=== PATIENT | male | born 1955 | race Caucasian/White ===

== ENCOUNTER 2022-04-19 06:46 | Observation (INO) ==
[~2022-04-19 06:46] MED LIST: LIDOCAINE 1% LOCAL 20 ML VIAL ONE
[2022-04-19] MEDS ORDERED: LIDOCAINE 1% LOCAL 20 ML VIAL ONE (07:05)
--- NOTE | 2022-04-19 08:02 | History & Physical Bridge Note ---
Date of Service April 19, 2022 History & Physical Bridge Note I have examined the patient, reviewed the History & Physical and in the interval since the performance of the History & Physical I have noted the following changes of clinical significance: no changes noted I have explained the risk, benefit and intent of the procedure to the patient and he is willing to proceed.
--- NOTE | 2022-04-19 08:03 | Pre Anesthesia Assessment ---
Date of Service April 19, 2022 Pre Sedation Assessment Vital Signs Temp Pulse Resp BP Pulse Ox 04/19/22 07:05 37.2 C 70 16 177/89 H 98 Pre-Sedation Airway Assessment Smoking Status: Never smoker Short, Thick Neck: No Thyromental Distance: > or= 3.5 Finger Breadths Oral Cavity: + WNL Mallampati Class: III ASA: ASA3 NPO Status Date of Last Intake of Fluids: 04/18/22 Time of Last Intake of Fluids: 20:00 Date of Last Intake of Solid Food: 04/18/22 Time of Last Intake of Solid Foods: 20:00 Notes The planned sedation has been discussed with the patient. Informed Consent was obtained. I have identified the patient, determined the appropriateness of sedation and have assessed the patient immediately prior to the procedure. All medicine(s) and interventions are by my order.
[2022-04-19] MEDS ORDERED: niCARdipine HCL INJ 2.5 MG/ML 10 ML AMP ONE ×2 (08:06→08:07)
[2022-04-19] MEDS ORDERED: MIDAZOLAM HCL 1 MG/ML 2ML VIAL ONE ×3 (08:06→09:20)
[2022-04-19] MEDS ORDERED: HEPARIN (PORCINE) 1000 UNIT/ML 10 ML (CATH LAB USE ONLY) ONE ×2 (08:06→09:07)
[2022-04-19] MEDS ORDERED: NITROGLYCERIN/D5W 100MCG/ML 20ML SYR ONE (08:06)
[2022-04-19] MEDS ORDERED: fentaNYL citrate 100 MCG/2 ML VIAL ONE ×2 (08:06→08:07)
[2022-04-19] MEDS ORDERED: SODIUM CHLORIDE 0.9% 1000ML 1,000 ML IV SCH (08:15)
--- NOTE | 2022-04-19 08:54 | Cardiac Catheterization ---
Date of Service April 19, 2022 Cardiac Cath Report Cardiac Cath Report Procedure: 1. Left heart catheterization 2. Coronary angiography 3. Left ventriculogram History: This is a 66-year-old male patient who underwent a cardiac catheterization in 2004 and was found to have nonobstructive coronary artery disease. Patient presented recently with progressive exertional angina and was referred for cardiac catheterization. Procedure: After informed consent was obtained the patient was taken to the cardiac catheterization lab where access was obtained using a retrograde Salinger technique from the right radial artery. Preformed 5 Liberian diagnostic catheters were utilized for the coronary angiograms. A 5 Liberian pigtail catheter was utilized for left heart pressures and left ventriculogram. Following the procedure the patient underwent coronary intervention. ACC data: Start time 8:16 AM End time 8:34 AM Opening aortic pressure 149/98 Closing aortic pressure 166/87 Left ventricular pressure 161/16 Sedation 1 mg intravenous Versed IV fluid 55 cc normal saline Contrast 100 cc Optiray Fluoroscopy time 4 minutes Radiation 524 mGy DAP 48.78 Unger per centimeter squared Right dominant system AUC score 7 Coronary angiography: Injections into the left coronary artery revealed the left main trunk to be patent. The left circumflex artery consist of a large first marginal branch supplying the lateral myocardium and then a smaller second marginal branch supplying the posterior myocardium. The left circumflex artery has minor luminal irregularities but is widely patent. The first marginal branch however, does have a 50 to 60% eccentric narrowing distally. The LAD extends around the apex of the heart. The LAD gives off a single large first diagonal branch. 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 Injections in the right coronary artery reveal it to be dominant. There are minor luminal irregularities however the right coronary artery is widely patent. Left ventriculogram: The left ventricle is of normal size with normal systolic function. The mitral valve is competent. The aortic root and ascending aorta have normal morphology and diameter. Summary: The patient has a high-grade eccentric stenosis of the mid LAD which is most likely the cause of his angina. The remainder of the coronary anatomy is nonobstructive disease. Normal LV function. Recommendations: Coronary intervention and stent placement mid LAD.
[2022-04-19] MEDS ORDERED: CLOPIDOGREL BISULFATE 300 MG TAB ONE (09:31)
--- NOTE | 2022-04-19 09:40 | Post Anesthesia Assessment ---
Date of Service April 19, 2022 Post Sedation Assessment Vital Signs Temp Pulse Resp BP Pulse Ox 04/19/22 07:05 99.0 F 70 16 177/89 H 98 Recovery Score Activity: Moves 4 extremities Respiration: Deep Breath/Cough Circulation: +/-20% PreAnes Value Consciousness: Fully Awake Oxygen Saturation: O2 needed for >90% Discharge Sedation Level of Care: Fast Track Phase II Post Sedation Plan On clinical assessment, the patient appears to have tolerated the sedation without complications. Patient is recovering as anticipated. Patient will continue to be monitored by nursing and may be discharged when sedation discharge criteria are met per below protocol. Upon Completions of procedure up to 15 minutes continue every 5 minute vital signs and the P.A.R. score; then discharge to a Phase I or Fast Track to Phase II per the following guidelines: * Discharge Patient to appropriate Phase II area if PAR is 8 or greater or return to pre- procedure baseline. The post - procedure orders will be as directed. * If PAR score is less than 8 or not return to pre-procedure baseline then patient will follow Phase I monitoring till PAR is reached for Phase II. The Phase I may be done in procedure room or may call to secure a Phase I area. * If naloxone or flumazenil are used for reversal, hold in Phase I for continued monitoring from when last reversal dose was given for a minimum of 60 minutes or longer pending the nurse and/or physician discretion of patient condition before discharge to Phase II. Please call the Sedation Physician to re-evaluate and complete post-note for discharge to Phase II area. Do NOT discharge from procedure sedation or Phase 1 until post- sedation evaluation note is complete by procedure /sedation MD Sedation Discharge Instructions to be given to the patient at discharge to home.
[2022-04-19] MEDS ORDERED: ACETAMINOPHEN 325 MG TAB PO PRN (09:55)
[2022-04-19] MEDS ORDERED: ONDANSETRON INJ 2 MG/ML 2 ML VIAL IV PRN (09:55)
[2022-04-19] MEDS ORDERED: NITROGLYCERIN SL 0.4 MG/TAB TAB SL PRN (09:55)
--- NOTE | 2022-04-19 09:55 | Cardiac Catheterization ---
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 Cardiac Status Clinical evaluation leading to the procedure CAD Presenation: Unstable angina Anginal Classification: CCS III Diagnostic Physicians Name: Srinivas Yanez MD Closure Device Recommendations: PCI without planned CABG Cardiac Cath Procedure Full Procedure Date April 19, 2022 Pre-Procedure Diagnosis Pre-Procedure Diagnosis: Angina AUC Score AUC Score: 7 Post-Procedure Diagnosis Post-Procedure Diagnosis: Severe CAD and Successful PCI Procedure(s) Performed Procedure(s) Performed: Coronary Angiography, Left Heart Cath, Drug Eluting Stent and IVUS Teacher Private Srinivas Yanez MD Home Health Occupational Therapist(s) Melvin Estimated Blood Loss Estimated Blood Loss: 15 Medication(s) Medication(s): Clopidogrel, Fentanyl, Heparin, Nicardipine, Nitroglycerin and Versed Summary of Findings Indication: Unstable angina Access: 6 Fr right radial artery Catheters: EBU 3.5 guide Findings: For full details of patient's coronary angiography please see cath report dictated by Dr. Vazquez. Briefly, patient found to have diffuse LAD disease up to 80% in the early mid segment. Decision to proceed with PCI. -- PCI -- Antithrombotic therapy: Heparin, clopidogrel Procedure: Left main cannulated with EBU 3.5 guide Pre-procedure flow JOHN 3 BMW wire passed across lesion into distal vessel Selden IVUS catheter placed into mid LAD to assess calcification, extent of disease and for vessel sizing. Pullback revealed moderate to severe diffuse disease extending past diagonals and back to proximal vessel. Areas of severe eccentric calcification, most notably at takeoff of first and second septals. Proximal to mid LAD stented with 3.0 x 38 mm Lucius drug-eluting stent Stent post-dilated with 3.5 noncompliant balloon Repeat IVUS revealed well apposed, well-expanded stent. Eccentric calcified plaque noted just proximal to the stent and with mild residual chest pain following IC vasodilators decision made to place second more proximal stent 3.5 x 12 mm Florence placed to proximal LAD overlapping proximal aspect of initial stent IC vasodilators administered for spasm Post procedure JOHN 3 flow, stents well expanded with minimal residual stenosis and no apparent cardiac complications. Arterial Closure: TR band Summary: 1. Successful PCI of proximal to mid LAD with 2 overlapping drug-eluting stents (3.5 x 12, 3.0 x 38 mm Florence; postdilated with 3.5 NC). Recommendations: To PCU for continued monitoring Loaded with clopidogrel 600 mg in Repair Operator Continue dual-antiplatelet therapy for at least 6 months Continue statin, and ASCVD risk factor modification Consult cardiac Rehab If recurrent symptoms in the future additional FFR/PCI of distal OM could be considered. Hemodynamics Rest Ao:: 142/74/99 Final Ao: 128/65/94 LV: -- Recommendations Recommendations: PCI without planned CABG Specimens Specimens: None Radiation Exposure (mGy) 1472 Contrast (mls) 195 Fluids (cc crystalloids) Fluids (cc crystalloids): 200 Anesthesia moderate 5740-0118 Procedural Complication(s) None Disposition PCU I attest to the content of the Intraoperative Record and any orders documented therein. Any exceptions are noted below. [facility] Card Cath Procedure Codes Therapeutic Services & Ancillary Proc Procedure 1: Cardiovascular Tx and Anc Procedures: 66114 IV Ultrasound (Coronary or Graft) Moderate Sedation Procedure 1: Sedation/Anesthesia: 05272 Mod Sedation by the same physician; Ea [id number] Minutes Stenting Procedure 1: Cardiovascular Stent Procedures: 30310 Perc transcatheter placement of intracoronary stent(s), with ang PG Care Time/CCT Total # of Minutes Spent Total Time Spent with Patient: Total time spent is greater than 50% in coordination of care (as documented) at patient's floor/unit and/or counseling patient:
--- NOTE | 2022-04-19 10:16 | History & Physical Report ---
Date of Service April 19, 2022 Assessment & Plan (1) Unstable angina: Plan: Unstable angina S/P Successful PCI of proximal to mid LAD with 2 overlapping drug-eluting stents Continue dual antiplatelet therapy aspirin, Plavix for at least 6 months Continue statin Check lipid panel, HbA1c Appreciate cardiology input needs Needs follow-up with cardiology upon discharge COPD/Asthma Former Smoker Started on nebs Continue home inhalers Saturating well on room air GERD Continue PPI Pepcid as needed Dyslipidemia On statin DVT Px SCDs for now Code Status Full Code History of Present Illness Chief Complaint: Angina Primary Care Provider: Court Horton DO Patient is a 66-year-old male with history of asthma, COPD, crescendo angina, former tobacco use, dyslipidemia, coronary artery disease and other medical problems presents for heart catheterization on recommendation from his primary business administration instructor. Patient had successful PCI of proximal to mid LAD with overlapping drug-eluting stents. Patient states having chest pain associated with left shoulder, arm pain on exertion for many days and so was evaluated by [facility] cardiology for further evaluation. Patient describes chest pain as heartburn-like sensation, worsens with exertion and lately is frequency of his symptoms have been gradually worsening even with minimal exertion. He states having left upper extremity numbness and tingling of the fingers associated with the chest pain. He also states having heart racing kind of sensation intermittently. Reports intermittent cough, wheezing which he attributes to COPD. Currently post cardiac catheterization, he describes having minimal heartburn-like sensation. Denies any history of orthopnea, PND, dizziness, diaphoresis, hemoptysis, fever, chills, headache, change in vision, nausea, vomiting, abdominal pain, diarrhea, dysuria, hematuria. Allergies Allergy/AdvReac Type Severity Reaction Status Date / Time No Known Allergies Allergy Unverified 04/19/22 08:19 Home Medications Medication Instructions Recorded Confirmed Type Albuterol (Proair Hfa) 2 puff INHALATION Q4HR PRN #0 09/22/12 04/19/22 History MOMETASONE FUROATE-FORMOTEROL 2 aer INHALATION DAILY #0 aer 09/22/12 04/19/22 History (DULERA 100/5 MCG) PANTOPRAZOLE (PROTONIX) 40 mg PO QAM #30 tab 09/22/12 04/19/22 History SIMVASTATIN (ZOCOR) 40 mg PO QPM #0 tab 09/22/12 04/19/22 History ASPIRIN (ASPIRIN CHEWABLE) 81 mg PO DAILY #0 tab 10/07/12 04/19/22 History MULTIPLE VITAMIN (MULTIVITAMIN) 1 tab PO DAILY #0 tab 10/07/12 04/19/22 History dupilumab 300 mg/2 mL subcutaneous 300 mg SUBCUT Q14D 04/19/22 04/19/22 History pen injector fexofenadine 60 mg tablet 60 mg PO DAILY 04/19/22 04/19/22 History fluticasone propionate 50 2 spray INTRANASAL DAILY 04/19/22 04/19/22 History mcg/actuation nasal spray,suspension (Flonase Allergy Relief) montelukast 10 mg tablet 10 mg PO HS 04/19/22 04/19/22 History tiotropium bromide 1.25 1 puff INHALATION BID 04/19/22 04/19/22 History mcg/actuation mist for inhalation (Spiriva Respimat) Past Med/Surg History Medical History (Updated 04/19/22 @ 13:02 by Sadi Rodriguez MD) COPD (chronic obstructive pulmonary disease) Dyslipidemia Unstable angina Surgical History History of cholecystectomy Family History Mother Cancer Social History Smoking Status: Former smoker Hx Alcohol Use: Yes Alcohol type: beer Hx Substance Use: No Preferred Language: Macedonian Communication Ability: Effective School Secretary Required: No Beliefs That Will Affect Care: None Current Living Situation: Alone Other Information That Helps Us Care for You: No Feels Safe at Home: Yes Safety Concerns: Feels Safe At This Time Review of Systems Review of Systems: All systems reviewed & are unremarkable except as noted in Subjective Physical Exam Physical Exam: Physical Exam: Vitals signs as noted above General Appearance:Obese, no apparent distress Head: normocephalic, Atraumatic Eyes: normal inspection, EOMI Neck: supple, Trachea midline Respiratory/Chest: Decreased breath sounds, Minimal wheezing, No accessory muscle use Cardiovascular: S1, S2, No murmur Abdomen/GI:Soft, Non tender, Bowel sounds present Extremities/Musculoskeletal:normal inspection, 1+ B/L LE edema Neurologic/Psych:AAOX3, grossly no focal neurological deficits Skin: normal color, warm Results & Data Results & Data ([facility]) Vital Signs (Past 12 Hours) Vital Signs Temp Pulse Resp BP Pulse Ox 04/19/22 10:05 575 H 18 140/83 97 04/19/22 09:50 57 L 18 132/78 92 04/19/22 09:35 64 20 134/82 93 04/19/22 07:05 37.2 C 70 16 177/89 H 98 Laboratory Results Reviewed outpatient labs Code Status & VTE Plan VTE Prophylaxis Plan VTE Prophylaxis will be ordered: Yes
[2022-04-19] MEDS ORDERED: POLYETHYLENE (MIRALAX) 17 GM PACK PO PRN (11:14)
[2022-04-19] MEDS ORDERED: FAMOTIDINE 20 MG TAB PO PRN (11:14)
[2022-04-19 15:06] LABS: Influenza A virus by PCR Negative (Neg); Influenza B virus by PCR Negative (Neg); RSV by PCR Negative (Neg); SARS CoV2 RNA(COVID-19) InHosp NEGATIVE (Negative)
[2022-04-19] MEDS: ALBUT/IPRATROP 3MG/0.5MG NEB 3 ML VIAL NEB SCH ×2 (15:06→19:52)
--- NOTE | 2022-04-19 15:56 | Electrocardiogram Report ---
Test Reason : Blood Pressure : / mmHG Vent. Rate : 057 BPM Atrial Rate : 057 BPM P-R Int : 178 ms QRS Dur : 096 ms QT Int : 424 ms P-R-T Axes : 052 035 097 degrees QTc Int : 412 ms Sinus bradycardia with sinus arrhythmia Nonspecific T wave abnormality Abnormal ECG No previous ECGs available Confirmed by Yuri Monroe ([id number]) on 04/19/2022 3:55:40 PM Referred By: Marcel Dc Confirmed By:Yuri Monroe
--- NOTE | 2022-04-19 15:59 | Electrocardiogram Report ---
Test Reason : Blood Pressure : / mmHG Vent. Rate : 059 BPM Atrial Rate : 059 BPM P-R Int : 172 ms QRS Dur : 104 ms QT Int : 426 ms P-R-T Axes : 060 047 095 degrees QTc Int : 421 ms Sinus bradycardia Otherwise normal ECG When compared with ECG of 19-APR-2022 09:41, (unconfirmed) No significant change was found Confirmed by Yuri Monroe ([id number]) on 04/19/2022 3:58:45 PM Referred By: Marcel Dc Confirmed By:Yuri Monroe
[2022-04-19] MEDS ORDERED: MONTELUKAST SODIUM 10 MG TABLET PO SCH (21:00)
[2022-04-19] MEDS ORDERED: SIMVASTATIN 40 MG TAB PO SCH (21:00)
[2022-04-20] MEDS: ALBUT/IPRATROP 3MG/0.5MG NEB 3 ML VIAL NEB SCH ×2 (07:12→11:23)
[2022-04-20 07:47] LABS: BUN Creatinine Ratio 9.9 (10-20); Calcium 8.9 mg/dl (8.5-10.1); Creatinine Clr Calc Pharmacy 84.2 ml/min; Est GFR (African American) 88.2 ml/min; Est GFR (Non-African American) 76.1 ml/min; Magnesium 1.8 mg/dl (1.7-2.4); Potassium 3.8 mmol/L (3.5-5.1)
[2022-04-20 08:00] LABS: Basophils # (auto) 0.01 K/uL (0-0.2); Basophils % (auto) 0.2 %; Eosinophils # (auto) 0.47 K/uL (0-0.5); Eosinophils % (auto) 7.6 %; Hematocrit (blood only) 41.3 % (42-52); Hemoglobin 13.8 g/dL (14.0-18.0); Immature Granulocytes # (auto) 0.03 K/uL (0.00-0.02); Immature Granulocytes % (auto) 0.5 %; Lymphocytes # (auto) 0.92 K/uL (1.2-3.4); Lymphocytes % (auto) 14.9 %; Mean Corpuscular Hemoglobin 29.6 pg (25-34); Mean Corpuscular Hgb Conc 33.4 g/dL (32-36); Mean Corpuscular Volume 88.6 fL (80-100); Mean Platelet Volume 8.5 fL (7.4-10.4); Monocytes # (auto) 0.32 K/uL (0.11-0.59); Monocytes % (auto) 5.2 %; Neutrophils # (auto) 4.43 K/uL (1.4-6.5); Neutrophils % (auto) 71.6 %; Platelet Count 199 K/uL (130-400); RDW Coefficient of Variation 12.6 % (11.5-14.5); Red Blood Count 4.66 M/uL (4.7-6.1); White Blood Count 6.18 K/uL (4.8-10.8)
[2022-04-20 08:08] LABS: Estimated Average Glucose 126 mg/dl
[2022-04-20] MEDS ORDERED: CLOPIDOGREL BISULFATE 75 MG TAB PO SCH (09:00)
[2022-04-20] MEDS ORDERED: UMECLIDINIUM BROMIDE 62.5MCG/BLISTER 7 PUFFS/INHALER INH SCH (09:00)
[2022-04-20] MEDS ORDERED: FLUTICASONE PROPIONATE NA SPR 16 GM BTL SCH (09:00)
[2022-04-20] MEDS ORDERED: ASPIRIN 81 MG ECTAB PO SCH (09:00)
[2022-04-20] MEDS ORDERED: FLUTICASONE/VILANTEROL 200/25MCG 14 PUFFS/INHALER INH SCH (09:00)
[2022-04-20] MEDS ORDERED: FEXOFENADINE 60 MG TAB PO SCH (09:00)
[2022-04-20] MEDS ORDERED: PANTOprazole 40 MG TAB PO SCH (09:00)
--- NOTE | 2022-04-20 09:15 | Cardiology Progress Note ---
Date of Service April 20, 2022 Assessment & Plan (1) Unstable angina: Plan: Culprit LAD stenosis found on cardiac catheterization 04/19/22, S/p successful PCI of proximal to mid LAD with 2 overlapping drug-eluting stents (3.5 x 12, 3.0 x 38 mm [place]; postdilated with 3.5 NC). Has residual 50-60% intermediate OM stenosis , for which medical therapy recommended. If has recurrent symptoms on outpatient follow up , options include return to quality lab [facility]oc for FFR, evaluation of OM. Continue ASA 81 mg (lifelong), clopidogrel 75 mg daily (new medication, for at least 6 months), rosuvastatin 20 mg daily (has outpt Rx , started by Dr Dc 04/11/22). No beta riley as BP controlled and has severe asthma. No ACEI / ARB for now, as BP well controlled. No clinical CHF. Proceed with echocardiogram this am, if stable , OK for discharge. Plan for virtual cardiac Rehab, will place referral in outpt chart. Plan for cardiology follow up, [facility] D[facility] [place] or [facility] in 1 month. (2) Dyslipidemia: Plan: Continue rosuvastatin. Will reassess after echo completed. Anticipate discharge to home. 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 Anticipates low stress environment. Admission and Anticipated Discharge Date Admission Date: April 19, 2022 Subjective Pt seen in cardiology follow up. No angina overnight. Tolerated cardiac catheterization / PCI well. Telemetry reveals. Labs stable with normal renal function this am. Review of Systems Review of Systems: All systems reviewed & are unremarkable except as noted in HPI & below Physical Exam Physical Exam: Temp Pulse Resp BP Pulse Ox 36.5 C 70 22 131/77 94 04/20/22 08:00 04/20/22 08:53 04/20/22 08:00 04/20/22 08:00 04/20/22 08:00 Constitutional: WD/WN, vitals as above Respiratory: normal respiratory effort, lungs clear to auscultation Cardiovascular: RRR, no murmur, no edema (R radial cath access site, clean dry and intact, no ecchymosis) Gastrointestinal (Abdomen): normal bowel sounds, soft, nontender, no hepatosplenomegaly Neurologic: PERRL, EOMI, accommodation nl, no face palsy, no dysarthria Results & [facility] ([facility]) Vital Signs (Past 12 Hours) Vital Signs Temp Pulse Pulse Resp BP Pulse Ox 04/20/22 08:53 70 04/20/22 08:00 36.5 C 73 22 131/77 94 04/20/22 07:12 71 16 98 04/20/22 03:50 36.6 C 77 20 149/102 H 96 04/19/22 23:45 36.6 C 67 20 151/76 H 94 04/19/22 22:30 71 Laboratory Results Lipids 04/20/22 Range/Units 07:01 Triglycerides 119 (0-150) mg/dl Cholesterol 129 (0-200) mg/dl HDL Cholesterol 43 mg/dl Cholesterol/HDL Ratio 3.0 (0-5) CBC 04/20/22 Range/Units 07:01 WBC 6.18 (4.8-10.8) K/uL RBC 4.66 L (4.7-6.1) M/uL Hgb 13.8 L (14.0-18.0) g/dL Hct 41.3 L (42-52) % Plt Count 199 (130-400) K/uL Neut # (Auto) 4.43 (1.4-6.5) K/uL Lymph # (Auto) 0.92 L (1.2-3.4) K/uL Bartholomew # (Auto) 0.32 (0.11-0.59) K/uL Eos # (Auto) 0.47 (0-0.5) K/uL Baso # (Auto) 0.01 (0-0.2) K/uL Comprehensive Metabolic Panel 04/20/22 Range/Units 07:01 Sodium 137 (136-145) mmol/L Potassium 3.8 (3.5-5.1) mmol/L Chloride 105 (98-107) mmol/L Carbon Dioxide 24 (21-32) mmol/L BUN 10 (6-23) mg/dl Creatinine 1.01 (0.6-1.4) mg/dl Glucose 163 H (70-99(Fasting)) mg/dl Calcium 8.9 (8.5-10.1) mg/dl Intake and Output 04/19/22 04/20/22 04/20/22 22:59 06:59 14:59 Intake Total 868.8 / 1118.8 250 / 1118.8 Output Total 700 / 2300 Balance 168.8 / -1181.2 250 / -1181.2 Intake: IV 508.8 / 508.8 Sodium Chloride 0.9% 1000ML 1, 508.8 / 508.8 000 ml @ 106 mls/hr IV .[id number] [facility] Rx#:[id number] Oral 360 / 610 250 / 610 Output: Urine 700 / 2300 Other: Weight 103 kg Weight Measurement Method Standing Scale
--- NOTE | 2022-04-20 17:58 | Discharge Summary ---
Date of Service April 20, 2022 Admission HPI Per Admitting Provider Patient is a 66-year-old male with history of asthma, COPD, crescendo angina, former tobacco use, dyslipidemia, coronary artery disease and other medical problems presents for heart catheterization on recommendation from his primary glass setter. Patient had successful PCI of proximal to mid LAD with overlapping drug-eluting stents. Patient states having chest pain associated with left shoulder, arm pain on exertion for many days and so was evaluated by [facility] cardiology for further evaluation. Patient describes chest pain as heartburn-like sensation, worsens with exertion and lately is frequency of his symptoms have been gradually worsening even with minimal exertion. He states having left upper extremity numbness and tingling of the fingers associated with the chest pain. He also states having heart racing kind of sensation intermittently. Reports intermittent cough, wheezing which he attributes to COPD. Currently post cardiac catheterization, he describes having minimal heartburn-like sensation. Denies any history of orthopnea, PND, dizziness, diaphoresis, hemoptysis, fever, chills, headache, change in vision, nausea, vomiting, abdominal pain, diarrhea, dysuria, hematuria. Admission Exam Per Admitting Provider Physical Exam: Vitals signs as noted above General Appearance:Obese, no apparent distress Head: normocephalic, Atraumatic Eyes: normal inspection, EOMI Neck: supple, Trachea midline Respiratory/Chest: Decreased breath sounds, Minimal wheezing, No accessory muscle use Cardiovascular: S1, S2, No murmur Abdomen/GI:Soft, Non tender, Bowel sounds present Extremities/Musculoskeletal:normal inspection, 1+ B/L LE edema Neurologic/Psych:AAOX3, grossly no focal neurological deficits Skin: normal color, warm Principal Diagnosis Unstable angina Discharge Exam GENERAL: Alert and oriented x3. NAD, on RA. HEENT: No pallor, no icterus. Pupils equal, round and reactive to light. Oral mucosa moist. NECK: No JVD, no neck masses. HEART: S1 and S2 heard. Regular rate and rhythm. No murmur, no gallop. RESPIRATORY SYSTEM: Normal AP diameter. No accessory muscle use. No wheezing, no crackles. ABDOMEN: Soft, bowel sounds present, nontender, no distention. CENTRAL NERVOUS SYSTEM: No facial droop. Speech is clear. Obeys simple commands. Moves extremities. EXTREMITIES: No edema, no erythema seen. Discharge Data Allergies Allergy/AdvReac Type Severity Reaction Status Date / Time No Known Allergies Allergy Unverified 04/19/22 08:19 Consultations 04/19/22 10:00 Consult Cardiac Rehabilitation Routine 04/19/22 11:14 Consult Cardiology Routine Procedures Performed Operation Date: 04/19/22 08:00 Actual Procedures p Cath, Left with Cors and Vent - Wan Vazquez DO s Drug Eluting Stent SGl Vessel - Oc Yanez MD s IVUS Coronary Single Vessel - Oc Yanez MD s Cineradiography w/Routine Exam - Oc Yanez MD Ordered Studies 04/16/22 07:13 CL Cath Imgs for PACS use only Routine 04/19/22 06:32 CL Cath Imgs for PACS use only Routine 04/19/22 09:52 CL IVUS Coronary Single Vessel Routine Hospital Course (1) Unstable angina: 66-year-old man was managed for the following while in hospital: #. Unstable angina S/P Successful PCI of proximal to mid LAD with 2 overlapping drug-eluting stents Continue dual antiplatelet therapy aspirin, Plavix for at least 6 months Continue statin Discussed with cardiology, [place] for discharge, follow-up with cardiology as an outpatient. Follow-up with PCP. Follow-up with cardiac rehab. Echo reviewed and fairly WNL with EF 55 to 60%. #. Other chronic medical conditions: COPD/asthma, former smoker, GERD, dyslipidemia Continue/resume home meds. DVT prophylaxis: SCDs Full code Patient was discharged to home with following instruction at the point of discharge: Follow up w/ PCP in a week time. Follow up w/ cardiology as per Cardio's discussion with you. In one month. Follow up w/ cardiac rehab. Cardio evaluated, heart cathed you for unstable angina, you got 2 overlapping ALANNA stents to you mid LAD (one of heart blood vessel). Your medications have been optimized, take medications as prescribed. ACTIVITY RECOMMENDATIONS: Excess manipulation of the wrist should be avoided for the next 24-48 hours. * No lifting over 2 pounds (approximately a 1/2 gallon of milk) with the utilized arm for 24 hours. * No strenuous activity such as bowling or tennis for 3 days. * Keep the site of the procedure covered with a bandage for 24 hours. *You may shower the day after the procedure. Do not take a tub bath or submerge the puncture site in water for the next 3 days. *Do not operate any motorized equipment for 3 days. SPECIAL CARE INSTRUCTIONS: The site may be slightly bruised and sore following your procedure. Should any of the following occur, contact the Dr. who performed your procedure. 1. Redness/inflammation, swelling, chills, or fever, or colored drainage at procedure site within 3-7 days after your procedure. 2. Coldness, discoloration, ongoing numbness, severe pain, or swelling. Expect mild tingling of hand and tenderness at the puncture site for up to three days. If this persists beyond three days, or other symptoms develop, notify the Dr. who performed your procedure. BLEEDING: If the procedure site on your wrist begins to bleed, do not panic 1. Place 1 or 2 fingers firmly just slightly above the insertion site to stop the bleeding. You may be able to feel your pulse as you hold pressure. 2. Lift your finger after 5 minutes to see if the bleeding has stopped. 3. Once the bleeding has stopped, gently wipe the wrist area clean with a bandage. * If the bleeding from your wrist does not stop after 10 minutes, or if there is a large amount of bleeding or spurting, call 911 (do not drive yourself to the hospital). SKIN IRRITATION: * You may experience some redness and/or swelling in the area where radiation was administered. If any skin irritation occurs, please contact your family physician. FOLLOW UP VISIT: Keep any scheduled doctor appointments. Total Time Total Time Spent Total Time Spent (In Minutes): 35 Discharge Plan Discharge Items Patient Disposition: Home - Self-Care Reason For Visit: Crescendo Angina Discharge Diagnosis: Unstable angina Activity: Per Instructions section Non-emergency contact: Primary Care Provider Call non-emergency contact if: you have any medication questions, your symptoms worsen and your temperature is above 101 Follow-up/Referrals: Court Horton DO [Primary Care Provider] - Diet: Carb Consistent or DM2 and Heart Healthy Addtl Attending Provider Instructions: Follow up w/ PCP in a week time. Follow up w/ cardiology as per Cardio's discussion with you. In one month. Follow up w/ cardiac rehab. Cardio evaluated, heart cathed you for unstable angina, you got 2 overlapping ALANNA stents to you mid LAD (one of heart blood vessel). Your medications have been optimized, take medications as prescribed. ACTIVITY RECOMMENDATIONS: Excess manipulation of the wrist should be avoided for the next 24-48 hours. * No lifting over 2 pounds (approximately a 1/2 gallon of milk) with the utilized arm for 24 hours. * No strenuous activity such as bowling or tennis for 3 days. * Keep the site of the procedure covered with a bandage for 24 hours. *You may shower the day after the procedure. Do not take a tub bath or submerge the puncture site in water for the next 3 days. *Do not operate any motorized equipment for 3 days. SPECIAL CARE INSTRUCTIONS: The site may be slightly bruised and sore following your procedure. Should any of the following occur, contact the Dr. who performed your procedure. 1. Redness/inflammation, swelling, chills, or fever, or colored drainage at procedure site within 3-7 days after your procedure. 2. Coldness, discoloration, ongoing numbness, severe pain, or swelling. Expect mild tingling of hand and tenderness at the puncture site for up to three days. If this persists beyond three days, or other symptoms develop, notify the Dr. who performed your procedure. BLEEDING: If the procedure site on your wrist begins to bleed, do not panic 1. Place 1 or 2 fingers firmly just slightly above the insertion site to stop the bleeding. You may be able to feel your pulse as you hold pressure. 2. Lift your finger after 5 minutes to see if the bleeding has stopped. 3. Once the bleeding has stopped, gently wipe the wrist area clean with a bandage. * If the bleeding from your wrist does not stop after 10 minutes, or if there is a large amount of bleeding or spurting, call 911 (do not drive yourself to the hospital). SKIN IRRITATION: * You may experience some redness and/or swelling in the area where radiation was administered. If any skin irritation occurs, please contact your family physician. FOLLOW UP VISIT: Keep any scheduled doctor appointments. Pending Studies at Discharge: No Stand-Alone Forms: My [employer], Smoking Cessation Medications and DC Order Prescriptions: New clopidogrel 75 mg Tablet 75 mg PO QAM Qty: 30 RF: 0 rosuvastatin [Crestor] 20 mg Tablet 20 mg PO QAM Qty: 30 RF: 0 Continued Albuterol (Proair Hfa) AEROSOL,SOLN 2 puff Inhalation Q4HR PRN Qty: 0 RF: 0 MOMETASONE FUROATE-FORMOTEROL (DULERA 100/5 MCG) 1 AER AER 2 aer Inhalation DAILY Qty: 0 RF: 0 PANTOPRAZOLE (PROTONIX) 40 MG tablet 40 mg PO QAM Qty: 30 RF: 0 MULTIPLE VITAMIN (MULTIVITAMIN) 1 TAB tablet 1 tab PO DAILY Qty: 0 RF: 0 fexofenadine 60 mg Tablet 60 mg PO DAILY RF: 0 montelukast 10 mg tablet 10 mg PO HS RF: 0 fluticasone propionate [Flonase Allergy Relief] 50 mcg/actuation [place],Suspension 2 spray INTRANASAL DAILY RF: 0 Spiriva Respimat 1.25 mcg/actuation mist 1 puff INHALATION BID RF: 0 dupilumab 300 mg/2 mL Pen Injector 300 mg SUBCUT Q14D RF: 0 ASPIRIN (ASPIRIN CHEWABLE) 81 MG CHEWABLE TAB 81 mg PO DAILY Qty: 30 RF: 0 Discontinued SIMVASTATIN (ZOCOR) 40 MG tablet 40 mg PO QPM Qty: 0 RF: 0 Discharge Orders: Discharge Order (Routine); Ordered 04/20/22 Ordered By: Eliud Sanderson Admission Data Admit Date/Time: 04/19/22 10:20 Attending Provider: Wan Vazquez Admit Provider: Eliud Sanderson Primary Care Provider: Court Horton Other Providers: Eliud Sanderson ; Sadi Rodriguez Other Interventions: Discharge Summary Assessment (RN) Last Done: 04/20/22 12:00
[2022-04-21] MEDS ORDERED: ROSUVASTATIN CALCIUM 20 MG TAB PO SCH (09:00)
--- NOTE | 2022-04-21 14:39 | Electrocardiogram Report ---
Test Reason : Blood Pressure : / mmHG Vent. Rate : 069 BPM Atrial Rate : 069 BPM P-R Int : 160 ms QRS Dur : 094 ms QT Int : 418 ms P-R-T Axes : 071 065 084 degrees QTc Int : 447 ms Normal sinus rhythm Normal ECG When compared with ECG of 19-APR-2022 11:29, No significant change was found Confirmed by Yossi Trujillo ([id number]) on 04/21/2022 2:39:14 PM Referred By: Marcel Dc Confirmed By:Yossi Trujillo
== END 2022-04-20 12:14 | disposition home or self-care (01) ==
LOC: 2S 06:46 → CC 06:46